=== PATIENT | male | born 1975 | race Caucasian/White ===

== ENCOUNTER → 2018-10-30 | Outpatient (CLI) | payer OTHER ==
--- NOTE | 2018-10-30 21:12 | Diagnostic Imaging Report ---
TECHNIQUE: Magnetic resonance imaging of the LEFT KNEE was performed WITHOUT injected contrast. HISTORY: Twisted knee COMPARISON: None available. FINDINGS: LIGAMENTS AND TENDONS: ACL: Intact PCL: Intact Collateral ligaments: Intact Iliotibial band: Unremarkable Popliteal tendon: Intact Extensor mechanism: Intact JOINT: Menisci: Medial: High-grade attenuation of the posterior horn, near complete to complete transection. Resulting in peripheral extrusion of the body. Lateral: Intact Articular Cartilage: Medial Compartment: Intermediate to high-grade erosion of the weightbearing cartilage. Lateral Compartment: No focal defect. Patellofemoral Compartment: Intermediate to high-grade erosions and fibrillation of the patellar cartilage. Joint Fluid: Synovitis and small effusion. BONES: No focal or infiltrative bone marrow replacing abnormality. No acute fracture. The femoral trochlea is mildly hypoplastic. Mild peripheral subchondral edema at the medial tibial plateau. SOFT TISSUES: Prominent anterior soft tissue edema. IMPRESSION: 1. Near complete to complete transection of the posterior horn of the medial meniscus resulting in peripheral extrusion of the body. 2. Mild bone marrow contusion at the periphery of the medial tibial plateau greater than the adjacent medial femoral condyle. 3. Medial and patellofemoral compartment osteoarthrosis. Signed by: Dr. Denny Marsh D.O., M.M.M. on 10/30/2018 9:08 PM
== END ==
LOC: MRI 15:52
PROVIDERS: ATTEND Family Medicine
DX: M25.562 Pain in left knee (principal); S83.242A Other tear of medial meniscus, current injury, left knee, initial encounter; M17.12 Unilateral primary osteoarthritis, left knee; X50.1XXA Overexertion from prolonged static or awkward postures, initial encounter